=== PATIENT | female | born 1990 | race Caucasian/White ===

== ENCOUNTER 2016-12-17 21:37 | Emergency (ER) | payer MEDICAID ==
[2016-12-17 23:21] LABS: BASOPHIL % 0.6 % (0-2)
[2016-12-17 23:25] LABS: PLATELET COUNT 464 x10^3mcL (130-400); RED CELL DISTRIBUTION WIDTH 17.9 % (11.5-14.5)
[2016-12-17 23:31] LABS: CARBON DIOXIDE 28.9 mmol/L (21-32); CHLORIDE SERUM 105 mmol/L (98-107); CREATININE SERUM 0.8 mg/dL (0.6-1.0); GFR1 > 60 mL/min; GLUCOSE SERUM 100 mg/dL (74-106); POTASSIUM SERUM 3.9 mmol/L (3.5-5.1); SODIUM SERUM 140 mmol/L (136-145)
[2016-12-17 23:35] LABS: ALBUMIN 3.4 g/dL (3.4-5.0); ALKALINE PHOSPHATASE 87 U/L (46-116); ALT/SGPT 27 U/L (14-59); AST/SGOT 15 U/L (15-37); BILIRUBIN TOTAL 0.4 mg/dL (0.20-1.00); TOTAL PROTEIN, SERUM 7.4 g/dL (6.4-8.2)
[2016-12-17 23:46] LABS: CK-MB < 0.5 ng/mL (0-3.6); CREATINE KINASE 27 U/L (26-192)
[2016-12-18 00:50] VITALS: BP 127/85
== END 2016-12-18 00:50 | disposition home or self-care (01) ==
LOC: ED 21:37
PROVIDERS: Emergency Medicine
DX: G89.29 Other chronic pain (principal); R07.89 Other chest pain; M79.602 Pain in left arm; R06.02 Shortness of breath
CPT/HCPCS: 85378; Q0092

== ENCOUNTER 2017-10-24 18:43 | Emergency (ER) | payer OTHER ==
[~2017-10-24] VITALS: Ht 167.6 cm; Wt 126.1 kg
[2017-10-24 19:22] VITALS: Ht 167.6 cm; Wt 126.1 kg
[2017-10-24 21:36] LABS: UA SPECIFIC GRAVITY >=1.030 (1.005-1.035); microscopic required? YES; urine erythrocyte 3+ (NEGATIVE)
[2017-10-24 21:37] LABS: BASOPHIL % 0.5 % (0-2)
[2017-10-24 21:44] LABS: CALCIUM 8.9 mg/dL (8.5-10.1); CHLORIDE SERUM 105 mmol/L (98-107); CREATININE SERUM 0.6 mg/dL (0.6-1.0); GFR1 > 60 mL/min; GLUCOSE SERUM 113 mg/dL (74-106); POTASSIUM SERUM 4.1 mmol/L (3.5-5.1); SODIUM SERUM 140 mmol/L (136-145)
[2017-10-24 21:45] LABS: PLATELET COUNT 421 x10^3mcL (130-400); RED CELL DISTRIBUTION WIDTH 21.3 % (11.5-14.5)
[2017-10-24 21:57] LABS: ALBUMIN 3.4 g/dL (3.4-5.0); ALKALINE PHOSPHATASE 79 U/L (46-116); ALT/SGPT 18 U/L (14-59); AST/SGOT 8 U/L (15-37); BILIRUBIN TOTAL 0.32 mg/dL (0.20-1.00); LIPASE 76 IU/L (73-393); TOTAL PROTEIN, SERUM 7.6 g/dL (6.4-8.2)
[2017-10-25 00:33] VITALS: BP 111/64
== END 2017-10-25 00:33 | disposition home or self-care (01) ==
LOC: ED 18:43
PROVIDERS: Emergency Medicine
DX: R10.13 Epigastric pain (principal); R10.12 Left upper quadrant pain; B34.9 Viral infection, unspecified; D64.9 Anemia, unspecified; Z90.49 Acquired absence of other specified parts of digestive tract
CPT/HCPCS: 36415; 87804

== ENCOUNTER 2017-10-26 13:00 | Emergency (ER) | payer OTHER ==
[~2017-10-26] VITALS: Ht 167.6 cm; Wt 124.5 kg
[2017-10-26 13:04] VITALS: Ht 167.6 cm; Wt 124.5 kg
[2017-10-26 13:40] LABS: CALCIUM 8.9 mg/dL (8.5-10.1); CARBON DIOXIDE 27.1 mmol/L (21-32); CHLORIDE SERUM 103 mmol/L (98-107); CREATININE SERUM 0.6 mg/dL (0.6-1.0); GFR1 > 60 mL/min; GLUCOSE SERUM 137 mg/dL (74-106); POTASSIUM SERUM 3.6 mmol/L (3.5-5.1); SODIUM SERUM 139 mmol/L (136-145)
[2017-10-26 13:44] LABS: ALKALINE PHOSPHATASE 116 U/L (46-116); ALT/SGPT 119 U/L (14-59); AST/SGOT 104 U/L (15-37); BILIRUBIN TOTAL 0.37 mg/dL (0.20-1.00); LIPASE 73 IU/L (73-393); TOTAL PROTEIN, SERUM 7.6 g/dL (6.4-8.2)
[2017-10-26 13:46] LABS: BASOPHIL % 0.4 % (0-2)
[2017-10-26 13:49] LABS: ALBUMIN 3.3 g/dL (3.4-5.0)
[2017-10-26 13:57] LABS: PLATELET COUNT 470 x10^3mcL (130-400); RED CELL DISTRIBUTION WIDTH 21.5 % (11.5-14.5)
[2017-10-26 14:32] VITALS: BP 116/75
[2017-10-26 16:10] LABS: target cell (codocyte) 2+
[2017-10-26 16:53] LABS: rbc morphology (normal/abnorm) ABNORMAL (NORMAL)
== END 2017-10-26 14:32 | disposition home or self-care (01) ==
LOC: ED 13:00
PROVIDERS: Emergency Medicine
DX: D64.9 Anemia, unspecified (principal); N39.0 Urinary tract infection, site not specified; B37.9 Candidiasis, unspecified; D21.9 Benign neoplasm of connective and other soft tissue, unspecified; Z90.49 Acquired absence of other specified parts of digestive tract
CPT/HCPCS: J1885

== ENCOUNTER 2019-04-01 19:12 | Emergency (ER) | payer OTHER ==
[~2019-04-01] VITALS: Ht 167.6 cm; Wt 134.3 kg
[2019-04-01 19:14] VITALS: Ht 167.6 cm; Wt 134.3 kg
[2019-04-01 21:13] LABS: BASOPHIL % 1.7 % (0-2); PLATELET COUNT 433 x10^3mcL (130-400); RED CELL DISTRIBUTION WIDTH 17.8 % (11.5-14.5)
[2019-04-02 00:39] VITALS: BP 135/81
== END 2019-04-02 00:39 | disposition home or self-care (01) ==
LOC: ED 19:12
PROVIDERS: Emergency Medicine
DX: D25.9 Leiomyoma of uterus, unspecified (principal); Z90.49 Acquired absence of other specified parts of digestive tract
CPT/HCPCS: 36415